=== PATIENT | female | born 1960 ===

== ENCOUNTER 2025-01-07 01:28 | Outpatient (CLI) | payer MEDICARE, SELFPAY ==
--- NOTE | 2025-01-07 08:23 | DI.US_ITS ---
APPROVED REPORT EXAM: Comprehensive 2D, Doppler, and color-flow Echocardiogram Patient Location: Out-Patient Supervisor Cytology: Katya Zarate RDCS (AE) Indications: Cardiac Murmur Other Information Study Quality: Adequate. Technically limited study due to body habitus smoker. Conclusion Normal left ventricular wall thickness and chamber size. Ejection fraction is 55%. Wall motion is normal Normal right ventricular size and function Both atria are normal in size There is no structural or hemodynamically significant valvular disease Wall motion Left Ventricle The left ventricle is normal size. The left ventricular systolic function is normal. The left ventricular ejection fraction is within the normal range. There is normal left ventricular wall thickness. There is normal LV segmental wall motion. There is no ventricular septal defect visualized. LVEF is 53%. Right Ventricle Right ventricle is grossly normal in size. Right ventricular systolic function is grossly normal. Atria The left atrium size is normal. The right atrium size is normal. The interatrial septum is intact with no evidence for an atrial septal defect. Aortic Valve The aortic valve is normal in structure. Aortic valve is trileaflet. There is no aortic valvular stenosis. No aortic regurgitation is present. Mitral Valve The mitral valve is normal in structure. No evidence of mitral valve stenosis. Trace mitral regurgitation. Tricuspid Valve The tricuspid valve is normal in structure. There is no tricuspid valve stenosis. Trace tricuspid regurgitation. Unable to assess PA pressure. Pulmonic Valve The pulmonary valve is normal in structure. There is no pulmonic valvular stenosis. There is no pulmonic valvular regurgitation. Great Vessels The aortic root is normal in size. The ascending aorta is normal in size. Aortic arch is not well visualized. IVC is normal in size and collapses >50% with inspiration. Pericardium There is no pericardial effusion. 2D Dimensions IVSD d PLAX 0.71 cm F: 0.6-1.0 Ao Root d 2.48 cm F: 2.7 - 3.3 LVPW d PLAX 0.73 cm F: 0.6 - 1.0 Ao Asc Diam d 2.66 cm F: 2.3 - 3.1 LVID d PLAX 4.30 cm F: 3.8 - 5.2 LVDs 3.10 cm F: 2.2 - 3.5 LV EF Teichholz 55.1 % FS 28.38 % LV EDV (Teich) 81.2 mL LV ESV (Teich) 36.4 mL M-Mode TAPSE 2.33 cm (M/F) >1.7 Auto EF LV EDV A4C 82.3 mL LV EDV A2C 85.7 mL LV EDV BP 83.1 mL LV ESV A4C 39.8 mL LV ESV A2C 40.1 mL LV ESV BP 40.5 mL LVEF(%) A4C 51.6 % LVEF(%) A2C 53.2 % LVEF(%) BP 51.3 % LV SV A4C 42.5 ml LV SV A2C 45.6 ml LV SV BP 42.6 ml LV CO A4C 2.4 L/min LV CO A2C 2.5 L/min LV CO BP 2.4 L/min HR A4C 56.16 BPM HR A2C 53.89 BPM LV EDV Index (BP) LA Volume LA Length A4C 4.3 cm LA Length A2C 4.0 cm LA Area A4C s 13.95 cm2 LA Area A2C s 12.03 cm2 LA Vol A4C A-L 38.72 mL LA Vol A2C A-L 30.35 mL LA Vol Biplane A-L 35.2 mL LA Vol/BSA A4C A-L LA Vol/BSA A2C A-L LA Vol/BSA BP A-L 20.2 mL/m2 LA Vol A4C MOD 36.8 mL LA Vol A2C MOD 28.1 mL LA Vol BP MOD 33.0 mL LV Diastology MV E' medial 0.082 (>0.07 m/s) MV E Vmax 1.09 (0.4-1.3 m/s) MV E/E' MED 13.24 (<14) MV A Vmax 0.95 (0.4-1.3 m/s) MV E' lateral 0.077 (>0.1 m/s) E/A Ratio 1.1 MV E/E' LAT 14.16 (<14) MV E' Average 0.079 m/s MV E/E'(average) 13.68 Aortic Valve AoV Vmax 0.98 m/s LVOT Vmax 0.79 m/s AoV Peak Grad 3.9 mmHg LVOT Peak Grad 2.5 mmHg AoV Area (Vmax) 2.53 cm2 LVOT VTI 0.232 m AoV VTI 0.281 m LVOT Mean Grad 1.3 mmHg AoV Mean Ashvin. 0.68 m/s LVOT SV 72.88 mL AoV Mean Grad 2.1 mmHg LVOT Diam s 2.00 cm AoV Area (VTI) 2.59 cm2 AV Regurg Peak Gr. 3.87 mmHg Velocity Ratio 0.81 Mitral Valve MV DT 183 (160-240 msec) MV Vmax TIPS 1.04 m/s MV Mean Grad 1.6 (<2mmHg) MV VTI 0.403 m Pulmonary Valve PV Vmax 0.90 (0.5-1.5 m/s) RVOT Vmax 0.79 m/s PV Peak Grad 3.3 mmHg RVOT Peak Gr. 2.5 mmHg PV Mean Ashvin 0.61 m/s RVOT VTI 0.207 m PV Mean Grad 1.7 mmHg RVOT Mean Gr. 1.5 mmHg Tricuspid Valve TV S' 0.16 m/s
== END 2025-01-07 01:48 ==
PROVIDERS: PCP Specialist/Technologist Athletic Trainer; Visit Provider Internal Medicine Cardiovascular Disease
DX: R01.1 Cardiac murmur, unspecified (principal)
CPT/HCPCS: 93306